=== PATIENT | male | born 1950 | race Caucasian/White ===

== ENCOUNTER 2018-02-28 08:23 | Emergency (ER) | payer OTHER ==
[~2018-02-28] VITALS: Ht 167.6 cm; Wt 85.1 kg
[2018-02-28 08:48] LABS: BASOPHIL (%) 0.5 % (0-1); BASOPHIL COUNT 0.1 K/uL (0-0.1); EOSINOPHIL (%) 2.4 % (0-5); EOSINOPHIL COUNT 0.3 K/uL (0-0.3); HEMOGLOBIN 17.8 G/DL (12.5-16.6); IMMATURE GRANULOCYTE (%) 0.6 % (0.0-0.7); LYMPHOCYTE (%) 29.5 % (15-42); LYMPHOCYTE COUNT 3.3 K/uL (1.0-2.8); MCH 31.5 PG (29.0-34.0); MCHC 35.6 G/DL (30.0-36.0); MCV 88.5 FL (86-99); MONOCYTE (%) 6.2 % (3-12); MONOCYTE COUNT 0.7 K/uL (0-0.8); NEUTROPHIL (%) 60.8 % (45-76); NEUTROPHIL COUNT 6.8 K/uL (1.8-6.4); PLATELET COUNT 184 K/uL (156-360); RBC DIS.WIDTH-CV 12.8 % (11.8-14.6); RBC DIS.WIDTH-SD 41.8 % (39-53); RED BLOOD COUNT 5.65 M/uL (4.00-5.50); WHITE BLOOD COUNT 11.1 K/uL (4.1-10.2)
[2018-02-28 08:58] LABS: PTT 30.6 SEC (25-37)
[2018-02-28 08:59] LABS: CHLORIDE 104 mEq/L (99-109); SODIUM 138 mEq/L (136-147)
[2018-02-28 09:01] LABS: GLUCOSE 132 mg/dL (70-99)
[2018-02-28 09:04] LABS: CREATININE 0.9 mg/dL (0.6-1.3)
[2018-02-28 09:05] LABS: GFR ESTIMATE (CALCULATED) > 59 mL/min/ (58.99-99999); UREA NITROGEN (BUN) 16 mg/dL (9-23)
[2018-02-28 09:08] LABS: TROP-I INTERPRETATION NEGATIVE; TROPONIN-I < 0.01 ng/mL (0.0-0.30)
[2018-02-28] MEDS ORDERED: PRINIVIL10 MG PO (11:03)
[2018-02-28] MEDS ORDERED: ALEVE220 MG PO (11:04)
[2018-02-28 14:31] VITALS: BP 133/87
== END 2018-02-28 14:33 | disposition short-term general hospital (02) ==
LOC: EME 08:23
PROVIDERS: Emergency Medicine
DX: I63.531 Cerebral infarction due to unspecified occlusion or stenosis of right posterior cerebral artery (principal); R29.701 NIHSS score 1; I10 Essential (primary) hypertension
CPT/HCPCS: 70450; 70496; 70498; 70551; 71045; 80048; 84484; 85025; 85610; 85730; 93005; 99281; 99285; J2060